=== PATIENT | female | born 1985 | race Caucasian/White ===

== ENCOUNTER 2018-05-28 | Inpatient (IN) | payer SELFPAY ==
[2018-05-28] MEDS ORDERED: Lactated Ringers 500 ML IV ONE (08:04)
[2018-05-28] MEDS ORDERED: Tranexamic Acid 1,000 MG in Sodium Chloride 0.9% 100 ML IV PRN (08:04)
[2018-05-28] MEDS ORDERED: Misoprostol 400 MCG (4 X 100 MCG TAB) RECTAL PRN (08:04)
[2018-05-28] MEDS ORDERED: Methylergonovine 0.2 MG/1 ML Amp IM PRN (08:04)
[2018-05-28] MEDS ORDERED: fentaNYL 100 MCG/2 ML SDV IVPUSH PRN (08:04)
[2018-05-28] MEDS ORDERED: Lidocaine 1% 30 ML SDV INJECT PRN (08:04)
[2018-05-28] MEDS ORDERED: Ondansetron 4 MG/2 ML SDV IV PRN (08:04)
[2018-05-28] MEDS ORDERED: Sodium Chloride 0.9% 10 ML Syringe FLUSH PRN (08:04)
[2018-05-28] MEDS ORDERED: Carboprost Tromethamine 250 MCG/1 ML Amp IM PRN (08:04)
[2018-05-28] MEDS ORDERED: Oxytocin/Normal Saline 30 UNIT/500 ML BAG IV SCH ×2 (08:15)
[2018-05-28] MEDS: Misoprostol 25 MCG (1/4 of 100 MCG) Tab VAG PRN ×2 (09:50→14:00)
[2018-05-28] MEDS: Lactated Ringers 1,000 ML IV SCH ×2 (18:45→20:47)
[2018-05-28] MEDS ORDERED: Bupivacaine 0.75%/D5W 2 ML Amp ONE (20:46)
[2018-05-28] MEDS ORDERED: fentaNYL 100 MCG/2 ML SDV ONE (20:47)
[2018-05-28] MEDS ORDERED: EPINEPHrine 1 MG/ML SDV ONE (20:47)
--- NOTE | 2018-05-28 21:48 | PCM.PRNOTE ---
- Free Text/Narrative Note: Requested to provide analgesia to full term patient in severe pain. Upon entering the room, patient is sitting on edge of bed complaining of severe abdominal/pelvic pain and discomfort. Procedure was discussed with patient including adverse outcomes and expectations. Pt consented to analgesia, SAB/ IT. Pt placed into a proper sitting position. Landmarks for SAB/IT were identified and marked. Hands were washed and appropriate PPE was applied. Back was prepped with betadine x3. A sterile, transparent, fenestrated drape was applied. Excess betadine was removed. Using 3 mL of a 1% lidocaine solution , a skin wheel was placed at the L2/L3 interspace. A 24 ga (4 inch) Pencan spinal needle was inserted until positive for CSF. Negative for heme or paresthesias. Injected fentanyl 30 mcg, sufentanil 25 mcg, and 9 mg of a 0.75% bupivacaine solution with an epi wash. Pt was placed left lateral position for approximately 20 minutes. There were zero complications or adverse outcomes. Will continue to monitor. Procedure Date & Time: [id number]
[2018-05-29] MEDS ORDERED: Benzocaine/Menthol 20%-0.5% Spray 56 GM Canister TOP PRN (00:29)
[2018-05-29] MEDS ORDERED: Simethicone 80 MG Tab.Chew PO PRN (00:29)
[2018-05-29] MEDS ORDERED: diphenhydrAMINE 25 MG Tab PO PRN (00:35)
[2018-05-29] MEDS ORDERED: Famotidine 20 MG Tab PO PRN (00:36)
--- NOTE | 2018-05-29 01:00 | PN ---
DATE: 05/28/2018 SUBJECTIVE: A 41 and 1/7 weeks' 5, para 4-0-0-4, currently in early but active labor after 2 doses of Cytotec and Pitocin running. Artificial rupture of membranes was carried out with return of generally clear, however, particulate mec pieces in the amniotic fluid versus an overall greenish color to the fluid and has been lying in bed with her intrathecal in place. Reports that she is comfortable, starting to notice when she has the contractions but not having any significant pain. OBJECTIVE: Blood pressures have been a little bit less since the intrathecal, but certainly not hypotensive. heart tones tracing at around 120 beats per minute with recurrent early variable decelerations and contractions every 2 minutes with the Pitocin turned down to 2 milliunits. With this recurrent pattern, cervix was examined and about 5 cm dilated and about 85% effaced, 0 station. Overall, showing some gradual change at this time. Decision was made to place intrauterine pressure catheter and attempt amnio infusion to see if we could resolve the variables. Initial IUPC was attempted to be placed at the posterior maternal left and had flashback full of dark blood. Therefore, assuming placement underneath the placenta, this was withdrawn and new IUPC was placed on the maternal right side posteriorly and had return of very slightly blood-tinged amniotic fluid consistent with blood from the previous site and not being under the placenta any longer, bolus initiated and at first the baby seems to be looking a little bit better, variability is good, but we have a baseline closer to around 115 to 120 beats per minute. Contractions are continuing every 2 minutes. ASSESSMENT: 1. Recurrent variable decelerations. 2. 5, para 4-0-0-4 at 41 and 1/7 weeks' gestation. 3. Advanced maternal age. 4. Blood type A positive, rubella immune, group B Strep negative. 5. Varicose veins of . 6. History of abnormal Pap smear. 7. 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 8. Concerning tracing. PLAN: We will see how the baby responds to the amnioinfusion at this time. I have also discussed with the patient and her the potential for a delivery because of distress and that we are going to do everything we can to help her deliver vaginally, but if it comes down to the baby's safety, then section would be performed. Discussed with the patient, risk of infection and plan for preoperative antibiotics, risk of blood transfusion, as well as its inherent risks such as transfusion reaction, contraction of blood borne disease like HIV or hepatitis C, risk of injury to any internal organs or adjacent structures including but not limited to bowel, bladder, fallopian tubes, ovaries, uterus, large blood vessels, nerves, veins, and any other adjacent structures. Their questions were answered at this time, and they verbally agreed to proceed if it becomes necessary. At that time, written consent would also be obtained. [facility] /[id number] LINA
[2018-05-29] MEDS: Ibuprofen 800 MG Tab PO PRN ×3 (04:13→22:02)
--- NOTE | 2018-05-29 04:58 | DEL ---
DATE: 05/29/2018 PRE-PROCEDURE DIAGNOSES: 1. Forty one and 2/7 weeks' gestation based on last menstrual period. 2. 5, para 4-0-0-4. 3. Postdates . 4. Blood type A positive, rubella immune, group B streptococcus negative. 5. Advanced maternal age. 6. Varicose veins. 7. History of abnormal Pap smear. 8. 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 9. Acne. 10.Possible history of kidney stones. POSTPROCEDURE DIAGNOSES: 1. Forty one and 2/7 weeks' gestation based on last menstrual period. 2. 5, now para 5-0-0-5. 3. Status post spontaneous vaginal delivery with first-degree laceration repair. 4. Postdates . 5. Blood type A positive, rubella immune, group B streptococcus negative. 6. Advanced maternal age. 7. Varicose veins. 8. History of abnormal Pap smear. 9. 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 10.Acne. 11.Possible history of kidney stones. BRIEF HISTORY: A 33-year-old female, brought into the hospital with the above- listed diagnoses for induction of labor as she had been postdates, advanced maternal age, and required induction for all of her deliveries. Had a little bit of rough experience with Pitocin in the past, therefore, did 2 doses of Cytotec and when ad every minute and a half to 3 minutes, switched over to Pitocin. Then, after she received her intrathecal, performed artificial rupture of membranes. At that time, developed some variable early decelerations, which improved after placement of IUPC and amnioinfusion, although she would still have intermittent decelerations. The patient's stage I labor was technically 10 hours, but she went from 5 cm to complete in about 1 hour. We did some trial pushes, however, baby did not tolerate those very well, so we let her labor down for an additional 0.5 hour or so before attempting pushes again and she only needed to push then for about 15 minutes before successful vaginal delivery detailed as below. DETAILS: In the dorsal lithotomy position, she delivered a viable female in the UMARI position over intact perineum. After delivery of the head, two loose nuchal cords were noted and reduced bluntly before delivery of the remainder of the infant. Baby initially did not have any effort of crying and was placed immediately on mother's abdomen, dried, stimulated, and mouth and nose were bulb suctioned, and baby started breathing and crying right away. After delay, three-vessel umbilical cord was doubly clamped and then cut and cord blood sample obtained. Placenta then delivered by gentle cord traction and concomitant uterine massage, inspected, and it was intact. First-degree laceration repaired with 3-0 Vicryl in the usual fashion. Good hemostasis and cosmetic result. COMPLICATIONS: None. ESTIMATED BLOOD LOSS: 200 mL. FINDINGS: Viable female infant. scores of 8 and 9. Weight 3760 g, 8 pounds 5 ounces. Head circumference 14-1/2 inches. Chest 13-3/4 inches. Baby's delivery time was 0000 hours. [facility] /[id number] MTDD
[2018-05-29] MEDS: Levothyroxine 125 MCG Tab PO SCH (06:10)
[2018-05-29] MEDS: Acetaminophen 325 MG Tab PO PRN ×2 (07:42→19:43)
[2018-05-29] MEDS: Docusate Sodium 100 MG Cap PO PRN ×2 (07:43→19:43)
[2018-05-29] MEDS: Ferrous Sulfate 325 MG Tab PO SCH (07:43)
[2018-05-29] MEDS: Prenatal Multivitamin with Calcium/Folic Acid/Iron Tab PO SCH (08:54)
--- NOTE | 2018-05-29 10:10 | PN ---
DATE: 05/29/2018 SUBJECTIVE: day #0, currently doing well. She has been up to ambulate, voiding without any difficulties, passing flatus. seems to be going well. Bleeding has been well controlled. Pain is controlled. She has no other acute concerns or questions at this time. OBJECTIVE: Vital Signs: Temperature is 97.9, pulse 80, blood pressure 109/62, respiratory rate is 16, and O2 saturations 96% on room air. Heart: Regular without murmur. Lungs: Clear bilaterally. Abdomen: Soft and nontender. Fundus is firm and below the umbilicus. Extremities: No edema, erythema, or tenderness noted. ASSESSMENT: 1. Status post vaginal delivery, day #0. 2. Status post first-degree laceration repair. 3. 5, now para 5-0-0-5. 4. Varicose veins. 5. Hypothyroidism. PLAN: Continue routine cares. Anticipating discharge to home tomorrow. Her questions have been answered. [facility] /[id number]
[2018-05-29] MEDS ORDERED: Bupivacaine 0.75%/D5W 2 ML Amp INJECT ONE (13:36)
[2018-05-29] MEDS ORDERED: fentaNYL 100 MCG/2 ML SDV ITHECAL ONE (13:36)
[2018-05-29] MEDS ORDERED: EPINEPHrine 1 MG/ML SDV IV ONE (13:36)
[2018-05-30] MEDS: Levothyroxine 125 MCG Tab PO SCH (07:24)
[2018-05-30] MEDS: Docusate Sodium 100 MG Cap PO PRN (08:31)
[2018-05-30] MEDS: Prenatal Multivitamin with Calcium/Folic Acid/Iron Tab PO SCH (08:31)
[2018-05-30] MEDS: Ferrous Sulfate 325 MG Tab PO SCH (08:31)
[2018-05-30] MEDS: Ibuprofen 800 MG Tab PO PRN (08:31)
[2018-05-30 08:41] VITALS: BP 117/70
--- NOTE | 2018-06-01 08:43 | HP ---
Please see scanned admission history and physical from [facility]. [facility] /[id number]
--- NOTE | 2018-06-01 13:31 | DISCH ---
ADMITTING DIAGNOSES: 1. 40 and 1/7 weeks' intrauterine by last menstrual period. 2. 5, para 4-0-0-4. 3. Postdates . 4. Blood type A positive, rubella immune, group B strep negative. 5. Advanced maternal age. 6. Varicose veins. 7. History of abnormal Pap smear. 8. Hypothyroidism post Greta thyroiditis. 9. Acne. 10.Possible history of kidney stones. DISCHARGE DIAGNOSES: 1. 40 and 1/7 weeks' intrauterine by last menstrual period, delivered at 41 and 2/7 weeks' gestation. 2. 5, now para 5-0-0-5. 3. Postdates . 4. Blood type A positive, rubella immune, group B strep negative. 5. Advanced maternal age. 6. Varicose veins. 7. History of abnormal Pap smear. 8. Hypothyroidism post Greta thyroiditis. 9. Acne. 10.Possible history of kidney stones. 11.Anemia of blood loss from delivery. 12.Status post induction of labor with a successful spontaneous vaginal delivery. BRIEF HISTORY: This 33-year-old female brought into the hospital for elective induction because of postdates and advanced maternal age. This was initiated with Cytotec. Eventually, she went on to have an intrathecal and augmentation with Pitocin and artificial rupture of membranes. After that, baby developed recurrent variable decelerations and required placement of an IUPC for amnioinfusion, which did help with progression of labor. She did go from 5 cm dilated to complete in 1 hour and only needed to push for about 15 minutes. This was after 10 hours total of labor. She did quite well without any complications. Baby's scores were 8 and 9 and she weighed 3760 g. HOSPITAL COURSE: Hospital course has been good. The patient has been tolerating regular diet, voiding without difficulties. She has not yet had a bowel movement and her baby and that is going well. No other problems or concerns of her visit. No chest pain or shortness of breath. No symptoms of preeclampsia. DISCHARGE CONDITION: Good. Vital Signs: Temperature is 98.4, pulse 69, blood pressure 117/70, respiratory rate of 16, and O2 saturations 98% on room air. Heart: Regular without murmur. Lungs: Clear to auscultation bilaterally. Abdomen: Soft and nontender. Fundus firm and below the umbilicus. Extremities: No edema, erythema, or tenderness noted. LABORATORY DATA: Discharge hemoglobin of 10.6, admission was 11.4. DISPOSITION: Home with family. MEDICATIONS: 1. Ibuprofen 800 mg every 8 hours as needed for pain. 2. Tylenol 650 mg every 6 hours as needed for pain. 3. Iron 325 mg twice daily. 4. Colace 100 mg twice daily as needed for constipation. 5. vitamin, continue 1 daily. INSTRUCTIONS: Routine post vaginal delivery instructions for mother were provided, and her questions were answered. FOLLOWUP: She will have a 6 week exam in the clinic. We will also be able to check on her when she brings her baby in for well child check. [facility] /[id number]
== END 2018-05-30 11:25 | disposition home or self-care (01) | DRG 775 ==
LOC: DL.OB → OBSVTOIN 05-29 → EDSTATUS 06-03 08:20
PROVIDERS: ADMIT Family Medicine; ATTEND Family Medicine
PROC: 6A550ZT Pheresis of Cord Blood Stem Cells, Single (ICD-10-PCS; principal; 2018-05-29)
PROC: 0HQ9XZZ Repair Perineum Skin, External Approach (ICD-10-PCS; principal; 2018-05-29)
PROC: 3E033VJ Introduction of Other Hormone into Peripheral Vein, Percutaneous Approach (ICD-10-PCS; principal; 2018-05-29)
PROC: 10H07YZ Insertion of Other Device into Products of Conception, Via Natural or Artificial Opening (ICD-10-PCS; principal; 2018-05-29)
PROC: 3E0R3BZ Introduction of Anesthetic Agent into Spinal Canal, Percutaneous Approach (ICD-10-PCS; principal; 2018-05-29)
PROC: 10E0XZZ Delivery of Products of Conception, External Approach (ICD-10-PCS; principal; 2018-05-29)
PROC: 10907ZC Drainage of Amniotic Fluid, Therapeutic from Products of Conception, Via Natural or Artificial Opening (ICD-10-PCS; principal; 2018-05-29)
DX: O48.0 Post-term pregnancy (principal); Z37.0 Single live birth; Z3A.41 41 weeks gestation of pregnancy; O87.4 Varicose veins of lower extremity in the puerperium; O76 Abnormality in fetal heart rate and rhythm complicating labor and delivery; O70.0 First degree perineal laceration during delivery; O99.283 Endocrine, nutritional and metabolic diseases complicating pregnancy, third trimester; E03.9 Hypothyroidism, unspecified; E06.3 Autoimmune thyroiditis; O26.893 Other specified pregnancy related conditions, third trimester; L70.9 Acne, unspecified; O69.81X0 Labor and delivery complicated by cord around neck, without compression, not applicable or unspecified; Z67.10 Type A blood, Rh positive; Z87.442 Personal history of urinary calculi; Z79.899 Other long term (current) drug therapy
CPT/HCPCS: 01967; 36415; 51701; 59025; 59300; 59409; 85014; 85018; 85027; A9270-GY; J0171; J2405; J2590; J3010; J7050; J7120